=== PATIENT | male | born 1995 ===

== ENCOUNTER 2020-08-24 17:21 | Emergency (ER) | payer SELFPAY ==
[2020-08-24 18:06] LABS: #Basophils 0.1 thou/uL (0.0-0.2); #Eosinphils 0.1 thou/uL (0.0-0.7); #Lymphocytes 1.6 thou/uL (1.20-3.40); #Monocytes 0.8 thou/uL (0.11-0.59); #Neutrophils 8.5 thou/uL (1.40-6.50); %Basophils 0.5 % (0.0-1.0); %Eosinophils 1.1 % (0.0-10.0); %Lymphocytes 14.2 % (21.0-51.0); %Monocytes 7.6 % (0.0-10.0); %Neutrophils 76.6 % (42.0-75.0); Mean Corpuscular HGB CONC 33.8 g/dL (32.0-36.0); Mean Corpuscular Hemoglobin 27.2 pg (27.0-31.0); Mean Corpuscular Volume 80.4 fL (78.0-98.0); Mean Platelet Volume 7.1 fL (7.4-10.4); Platelet Count 245 thou/uL (130-400); RBC Distribution Width 12.5 % (11.5-14.5); Red Blood Cell (RBC) Count 6.25 mill/uL (4.70-6.10); White Blood Cell (WBC) Count 11.1 thou/uL (4.8-10.8)
[2020-08-24 18:21] LABS: ALT (SGPT) 45 U/L (8-55); AST (SGOT) 20 U/L (5-34); Albumin 4.8 g/dL (3.5-5.0); Alkaline Phosphatase 67 U/L (40-110); Anion Gap 17 mmol/L (10-20); BUN (Urea Nitrogen) 13 mg/dL (8.9-20.6); Bilirubin, Total 1.5 mg/dL (0.2-1.2); Calc. Creatinine Clearance 0 mL/min (70-130); Calcium 9.6 mg/dL (7.8-10.44); Carbon Dioxide 26 mmol/L (22-29); Chloride 98 mmol/L (98-107); Globulin 3.1 g/dL (2.4-3.5); Glucose 81 mg/dL (70-105); Protein, Total 7.9 g/dL (6.0-8.3); Sodium 137 mmol/L (136-145)
[2020-08-24] MEDS ORDERED: Ketorolac Tromethamine 30 MG/ML VIAL ONE (20:27)
[2020-08-24] MEDS ORDERED: Ondansetron ODT 4 MG TAB ONE (20:27)
[2020-08-24 20:58] LABS: Bacteria/HPF None Seen HPF (None Seen); Bilirubin Negative (Negative); Blood, Urine Negative (Negative); Clarity Clear (Clear); Glucose, Urine (Dipstick) Normal (Negative); Ketone, Urine 60 mg/dL (Negative); Leukocyte Negative Leu/uL (Negative); Mucous/LPF Rare LPF (<2+); Nitrite Negative (Negative); Protein, Urine (Dipstick) 30 mg/dL (Neg-Trace); RBC/HPF 0-3 HPF (0-3); Specific Gravity, Urine 1.037 (1.002-1.036); Squamous Epithelial None Seen HPF (0-3)
--- NOTE | 2020-08-24 22:05 | ULT ---
US Gallbladder RUQ: 08/24/2020 9:45 PM CLINICAL HISTORY: Right upper quadrant abdominal pain for 2 days. STUDY: Limited right upper quadrant ultrasound of abdomen. COMPARISON: None. FINDINGS: Liver: Size: Normal. Echogenicity: Normal. Contour: Smooth. Mass: None. Bile ducts: No intrahepatic or extrahepatic biliary dilatation. Common bile duct measures 3 mm. Gallbladder: Normal. Pancreas: Head, body, and tail appear normal. Right kidney: No pelvicalyceal dilatation. Right kidney measuring 11.2 cm in length. IMPRESSION: Unremarkable exam.
== END 2020-08-24 22:13 | disposition home or self-care (01) ==
LOC: ERS 17:21
DX: R10.11 Right upper quadrant pain (principal); R10.13 Epigastric pain; R11.0 Nausea
CPT/HCPCS: 36415; 76705; 80053; 81003; 81015; 85025; 96372; J1885; Q0162